=== PATIENT | female | born 1965 | race Caucasian/White ===

== ENCOUNTER → 2017-03-21 | Outpatient (CLI) | payer MEDICARE, BC ==
[2017-03-21 18:35] LABS: Basophils # (A) 0.1 k/uL (0-0.2); Basophils % (A) 1 %; CH 28.3; CHCM 33.1; Eosinophils % (A) 0 %; HCT 43.9 % (34.0-46.0); HDW 2.37; Luc # (Auto) 0.17; Luc % (Auto) 1; Lymphocytes # (A) 1.8 k/uL (1.0-4.8); Lymphocytes % (A) 15 %; MCH 27.4 pg (25.0-35.0); MCHC 31.9 g/dL (31.0-37.0); MCV 85.9 fL (80.0-100.0); Mean Platelet Volume 8.1; Monocytes # (A) 0.6 k/uL (0-1.0); Monocytes % (A) 5 %; Neutrophils # (A) 9.5 k/uL (1.3-7.7); Neutrophils % (A) 78 %; RBC 5.11 m/uL (3.80-5.40); RDW 14.1 % (11.5-15.5); WBC 12.2 k/uL (3.8-10.6); WBC (Perox) 12.24
[2017-03-21 18:53] LABS: ALT 41 U/L (9-52); AST 21 U/L (14-36); Alkaline Phosphatase 105 U/L (38-126); Anion Gap 11 mmol/L; Blood Urea Nitrogen 13 mg/dL (7-17); Carbon Dioxide 27 mmol/L (22-30); Chloride 103 mmol/L (98-107); Glucose 110 mg/dL (74-99); Non-African American GFR(MDRD) >60 (>60 ml/min/1.73 sqM); Potassium 4.3 mmol/L (3.5-5.1); Sodium 141 mmol/L (137-145); Total Bilirubin 0.4 mg/dL (0.2-1.3); Uric Acid 7.3 mg/dL (3.7-7.4)
[2017-03-21 19:43] LABS: Erythrocyte Sedimentation Rate 62 mm/hr (0-20)
== END | disposition home or self-care (01) ==
LOC: LABMAIN 17:58
PROVIDERS: ATTEND Family Medicine
DX: E03.9 Hypothyroidism, unspecified (principal); I26.99 Other pulmonary embolism without acute cor pulmonale; J45.909 Unspecified asthma, uncomplicated; R00.0 Tachycardia, unspecified
CPT/HCPCS: 36415; 80053; 84439; 84443; 84484; 84550; 85025; 85379; 85652

== ENCOUNTER → 2019-02-19 | Outpatient (CLI) | payer MEDICARE, BC | END | disposition home or self-care (01) | LOC: RADMRIMAIN 10:32 | PROVIDERS: ATTEND Psychiatry & Neurology Neurology | DX: Z53.9 Procedure and treatment not carried out, unspecified reason (principal) ==